=== PATIENT | female | born 1985 | race African-American/Black ===

== ENCOUNTER 2018-12-12 20:16 | Observation (INO) | payer SELFPAY ==
[2018-12-12 20:49] LABS: BARBITURATES NEG (NEG); BENZODIAZEPINES NEG (NEG); CANNABINOIDS POS (NEG); COCAINE NEG (NEG); METHADONE NEG (NEG); OPIATES NEG (NEG); PHENCYCLIDINE NEG (NEG)
[2018-12-12 20:50] LABS: AMPHETAMINE/METHAMPHETAMINE NEG (NEG)
== END 2018-12-12 20:23 | disposition left against medical advice (07) ==
LOC: 3 SO LND 20:16
PROVIDERS: ADMIT Specialist; ATTEND Specialist
DX: O62.9 Abnormality of forces of labor, unspecified (principal); Z3A.39 39 weeks gestation of pregnancy
CPT/HCPCS: 80307; G0379